=== PATIENT | female | born 1965 | race Caucasian/White ===

== ENCOUNTER 2016-10-16 16:17 | Emergency (ER) | payer OTHER ==
[~2016-10-16] VITALS: Wt 63.6 kg
[2016-10-16] MEDS ORDERED: IBUPROFEN 600 MG TAB PO ONE (17:00)
--- NOTE | 2016-10-16 17:14 | ERD ---
ER Documentation Chief Complaint Date/Time DATE: 10/16/16 TIME: 17:01 Chief Complaint bodypain s/p fall HPI 51-year-old otherwise healthy female presents the emergency department for complaints of diffuse back pain, left ankle pain and swelling and headache, status post [place]. Patient states that she slipped on coffee and twisted her left ankle landing on her right knee. She denies any head injury or trauma. She denies any loss of consciousness. She reports initial right knee pain and swelling which has since subsided however she states her left ankle pain has gradually worsened and is rated a current 5 out of 10 throbbing pain worse with movement or weightbearing and improved with ice and Motrin. Today she reports a gradually worsening frontal headache which she rates at a constant throbbing 9 out of 10. She also reports gradually worsening diffuse back pain which does not radiate. She denies any weakness, numbness or tingling. Patient denies nausea, vomiting, abdominal pain, visual changes, fever or chills. ROS All systems reviewed and are negative except as per history of present illness. Medications Home Meds Active Scripts Hydrocodone/Acetaminophen ([place] 5-325 Tablet) 1 Each Tablet, 1 TAB PO Q6H Y for PAIN, #5 TAB Prov:ELLEN SOLARES PA-C 10/16/16 Cyclobenzaprine Hcl* (Cyclobenzaprine Hcl*) 10 Mg Tablet, 5 MG PO TID, #20 TAB Prov:ELLEN SOLARES PA-C 10/16/16 Naproxen* (Naprosyn*) 500 Mg Tablet, 500 MG PO BID Y for PAIN AND/OR INFLAMMATION, #30 TAB Prov:ELLEN SOLARES PA-C 10/16/16 Allergies Allergies: Coded Allergies: No Known Allergy (Unverified , 10/16/16) PMhx/Soc Medical and Surgical Hx: pt denies Surgical Hx Anesthesia Reaction: No Hx Neurological Disorder: No Hx Respiratory Disorders: No Hx Cardiac Disorders: Yes (high cholesterol) Hx Psychiatric Problems: No Hx Miscellaneous Medical Probl: No Hx Alcohol Use: Yes (seldom wine) Hx Substance Use: No Hx Tobacco Use: No Smoking Status: Never smoker Physical Exam Vitals Vital Signs Date Time Temp Pulse Resp B/P Pulse Ox O2 Delivery O2 Flow Rate FiO2 10/16/16 16:34 98.6 66 20 140/79 97 Physical Exam Const: Well-developed, well-nourished, no acute distress Head: Atraumatic Eyes: Normal Conjunctiva, PERRLA, EOMI ENT: Normal External Ears, Nose and Mouth. Neck: Tense paraspinous muscles palpated. No midline cervical spine tenderness. full range of motion. No clavicular step-off or tenderness to palpation. Full range of motion at shoulder joints. Resp: Clear to auscultation bilaterally Cardio: Regular rate and rhythm, no murmurs Abd: Soft, non tender, non distended. Normal bowel sounds Skin: No ecchymosis, erythema, swelling, petechiae or rashes Back: Tense thoracic and lumbar paraspinous muscles palpated. No midline or flank tenderness. Full range of motion at hip joint Ext: Patient able to bear full weight and ambulate however reports discomfort. L ANKLE: No obvious asymmetry, deformity or crepitus. Mild area of effusion without surface trauma or ecchymosis to the posterior lateral malleolus. No erythema or increased warmth. Pedal pulse 2+. Full active and passive range of motion at ankle joint. Patient reports pain upon eversion. Slight tenderness to palpation over the lateral malleolus. No tenderness over the proximal fifth metatarsal. No plantar ecchymosis. No tenderness to the midfoot. Distal sensation intact upper and lower extremities. Deep tendon reflexes intact at knee and ankle joints. Radial, median, ulnar motor function intact bilaterally . Sensation to light touch intact to distal upper and lower extremities. Radial and pedal pulses 2+. Distal extremities warm and well perfused. Brisk capillary refill. No cyanosis, or edema. No tenderness at the proximal lower leg or knee. Full range of motion at knees bilaterally. Neur: Cranial nerves II through XII intact. Finger-nose intact. No pronator drift. Awake and alert Psych: Normal Mood and Affect Results 24 hrs Current Medications Medications (Trade) Dose Ordered Sig/Herman Route PRN Reason Start Time Stop Time Status Last Admin Dose Admin Ibuprofen (Motrin) 600 mg ONCE ONCE PO 10/16/16 17:00 10/16/16 17:01 DC 10/16/16 17:04 Procedures/MDM PROCEDURE: XR Left Ankle. CLINICAL INDICATION: 51-year-old female with left ankle pain. TECHNIQUE: AP, oblique and lateral views of the left ankle were performed. COMPARISON: None. FINDINGS: The soft tissues and bony elements are normal. The joint spaces are normal. The ankle mortise is normal. IMPRESSION: Unremarkable left ankle. RPTAT:AAJJ Physician Yamel Date Time Electronically viewed and signed by Jarvis Hamilton Physician on 10/16/2016 18:04 BIGG/ CC: ELLEN SOLARES-[place] X-ray Ankle 3V Interpreted by radiologist: Bones: No fracture Joints: No dislocation This is an otherwise healthy 51-year-old female who presents to the emergency department with left ankle pain as well as gradually worsening back and head pain status post a slip and fall yesterday. Patient denies any loss of consciousness, head trauma, nausea, vomiting, or change in vision. Physical exam unremarkable for any neurologic deficit or weakness. Patient able to bear full weight and perform range of motion throughout upper and lower extremities. Patient without evidence of decreased sensation and denies any numbness or tingling. There was evidence of mild swelling of the lateral left ankle and patient reports ongoing pain so x-rays were performed. Patient without complaint or evidence of mid or lateral foot swelling, erythema or tenderness to palpation. At this time I do not believe a CT scan of the brain is warranted as the patient 's headache is unlikely related to serious etiology. The patient does not exhibit any clinical signs or symptoms, and has no risk factors to suggest headache etiology such as subarachnoid hemorrhage, skull fracture, acute vertebral or carotid dissection, intracranial mass, epidural, subdural hematoma , dural venous sinus thrombosis, giant cell arteritis, or pseudotumor cerebri. The patient's back pain is unlikely related to serious etiology. The patient exhibits no clinical signs or symptoms and has no history or risk factors to suggest cauda equina, cord compression, epidural abscess, epidural hematoma, acute aortic aneurysm or dissection. Patient was placed in Giuseppe wrap, given crutch training, and instructions for proper management of and ankle sprain and back strain. Patient received Motrin while in the emergency department. Based on patient's history of present illness and physical examination the decision was made to discharge. The patient was re-evaluated after ED treatment and stabilizing measures, and symptoms have improved. There is no evidence of life threatening injuries or illnesses at this time. On re-examination, patient resting in no distress, stable vital signs, reports feeling better and safe for discharge with outpatient follow up with PMD in 1-2 days. Patient given return precautions. Departure Diagnosis: Primary Impression: Left ankle pain Chronicity: acute Qualified Code: M25.572 - Acute left ankle pain Additional Impressions: Headache Headache type: post-traumatic Headache chronicity pattern: acute headache Intractability: not intractable Qualified Code: G44.319 - Acute post- traumatic headache, not intractable Back pain Back pain location: thoracic back pain Chronicity: acute Back pain laterality: bilateral Qualified Code: M54.6 - Acute bilateral thoracic back pain Neck pain ELLEN SOLARES PA-C Oct 16, 2016 17:13
[2016-10-16] MEDS ORDERED: HYDR-906 PO (17:22)
[2016-10-16] MEDS ORDERED: NAPR-260 PO (17:22)
[2016-10-16] MEDS ORDERED: CYCL-319 PO (17:22)
--- NOTE | 2016-10-16 18:04 | RADRPT ---
PROCEDURE: XR Left Ankle. CLINICAL INDICATION: 51-year-old female with left ankle pain. TECHNIQUE: AP, oblique and lateral views of the left ankle were performed. COMPARISON: None. FINDINGS: The soft tissues and bony elements are normal. The joint spaces are normal. The ankle mortise is no rmal. IMPRESSION: Unremarkable left ankle. RPTAT:AAJJ Physician Yamel Date Time Electronically viewed and signed by Jarvis Hamilton Physician on 10/16/2016 18:04 BIGG/
== END 2016-10-16 18:37 | disposition home or self-care (01) ==
LOC: FTE 16:17
DX: M25.572 Pain in left ankle and joints of left foot (principal); G44.319 Acute post-traumatic headache, not intractable; M54.6 Pain in thoracic spine
CPT/HCPCS: 73610; Z7502; Z7610